=== PATIENT | male | born 1955 | race Caucasian/White ===

== ENCOUNTER → 2017-09-14 | Outpatient (CLI) | payer OTHER | LOC: RAD 07:55 | PROVIDERS: ATTEND Family Medicine | DX: M16.0 Bilateral primary osteoarthritis of hip (principal); R91.8 Other nonspecific abnormal finding of lung field; Q65.89 Other specified congenital deformities of hip; Z87.891 Personal history of nicotine dependence | CPT/HCPCS: 71046; 73523 ==

== ENCOUNTER → 2017-10-16 | Outpatient (CLI) | payer OTHER ==
[~2017-10-16] MED LIST: OMNIPAQUE 350 MG/ML, 75ML BOTTLE ONE
== END | disposition home or self-care (01) ==
LOC: CFH 12:42
PROVIDERS: ATTEND Family Medicine
DX: J43.2 Centrilobular emphysema (principal); D71 Functional disorders of polymorphonuclear neutrophils
CPT/HCPCS: 71260; Q9967

== ENCOUNTER → 2018-02-26 | Outpatient (CLI) | payer OTHER, MEDICARE | END | disposition home or self-care (01) | LOC: CARD 12:16 | PROVIDERS: ATTEND Internal Medicine Critical Care Medicine | DX: I35.0 Nonrheumatic aortic (valve) stenosis (principal); J96.11 Chronic respiratory failure with hypoxia; E78.5 Hyperlipidemia, unspecified | CPT/HCPCS: 36415; 82803; 93306 ==

== ENCOUNTER → 2018-06-18 | Outpatient (CLI) | payer OTHER, MEDICARE ==
[~2018-06-18] MED LIST changes: +OMNIPAQUE 350 MG/ML, 100ML BOTTLE ONE; -OMNIPAQUE 350 MG/ML, 75ML BOTTLE ONE
== END | disposition home or self-care (01) ==
LOC: CFH 09:09
PROVIDERS: ATTEND Internal Medicine Critical Care Medicine
DX: J44.9 Chronic obstructive pulmonary disease, unspecified (principal); J96.11 Chronic respiratory failure with hypoxia; J84.10 Pulmonary fibrosis, unspecified; J98.11 Atelectasis
CPT/HCPCS: 71275; Q9967

== ENCOUNTER → 2018-09-17 | Outpatient (CLI) | payer OTHER, MEDICARE ==
[~2018-09-17] MED LIST changes: -OMNIPAQUE 350 MG/ML, 100ML BOTTLE ONE; +REGADENOSON 0.4 MG/5 ML SYRINGE ONE
== END | disposition home or self-care (01) ==
LOC: CVU 06:47
PROVIDERS: ATTEND Internal Medicine Cardiovascular Disease
DX: I65.23 Occlusion and stenosis of bilateral carotid arteries (principal); I70.203 Unspecified atherosclerosis of native arteries of extremities, bilateral legs; I74.5 Embolism and thrombosis of iliac artery; I25.2 Old myocardial infarction; F17.210 Nicotine dependence, cigarettes, uncomplicated
CPT/HCPCS: 78452; 93017; 93880; 93922; 93925; 93978; A9502; J2785

== ENCOUNTER 2019-09-25 08:26 | Inpatient (IN) | payer OTHER, MEDICARE ==
[~2019-09-25] VITALS: Ht 188 cm; Wt 89.0 kg
[~2019-09-25 08:26] MED LIST changes: +ASPI-496 PO; +ASPI81TA45 PO; +ATOR40TA78 PO; +BUPR150T9 PO; +CLOP75TA PO; +HYDR-3241 PO; -REGADENOSON 0.4 MG/5 ML SYRINGE ONE; +[UNRECOGNIZED DRUG - REMARK]
--- NOTE | 2019-09-25 09:01 | NUR ---
RECEIVED REPORT FROM JOSETTE. PT UPRIGHT ON GURNEY AWAKE & COMFORTABLE AT REST, DANNIE RUSSELL AT BS, RESPONDS APPROP TO STAFF, COMFORT MEASURES PROVIDED, CALL LIGHT WITHIN REACH.
[2019-09-25 09:46] LABS: BASOPHILS # (AUTO) 0.05 x10^3/uL (0-0.1); BASOPHILS % (AUTO) 1 % (0-1); EOSINOPHILS # (AUTO) 0.08 x10^3/uL (0-0.4); EOSINOPHILS % (AUTO) 1 % (1-7); LYMPHOCYTES # (AUTO) 1.61 x10^3/uL (1-3.4); LYMPHOCYTES % (AUTO) 24 % (22-44); MD NO; MEAN CORPUSCULAR HEMOGLOBIN 31.7 pg (27.5-34.5); MEAN CORPUSCULAR HGB CONC 33.5 g/dL (33.2-36.2); MEAN CORPUSCULAR VOLUME 94.8 fL (81-97); MEAN PLATELET VOLUME 8.1 fL (7.4-10.4); MONOCYTES # (AUTO) 0.37 x10^3/uL (0.2-0.8); MONOCYTES % (AUTO) 6 % (2-9); NEUTROPHILS % (AUTO) 68 % (42-75); PLATELET COUNT 194 x10^3/uL (130-400); RED BLOOD COUNT 5.16 x10^6/uL (4.38-5.82); RED CELL DISTRIBUTION WIDTH 14.6 % (9.4-14.8)
[2019-09-25 09:55] LABS: INTERNATIONAL NORMALIZED RATIO 0.96 (0.93-1.1); PROTHROMBIN TIME 10.2 Seconds (9.6-11.5)
--- NOTE | 2019-09-25 09:59 | NUR ---
PT REMAINS UPRIGHT ON GURNEY AWAKE & COMFORTABLE AT REST, RESPONDS APPROP TO STAFF, COMFORT MEASURES PROVIDED, CALL LIGHT WITHIN REACH.
[2019-09-25 10:26] LABS: ANION GAP 5 mmol/L (5-15); CALCIUM 8.6 mg/dL (8.5-10.1); CHLORIDE 109 mmol/L (98-107)
[2019-09-25 10:27] LABS: ALANINE AMINOTRANSFERASE 23 U/L (12-78); ALBUMIN 3.8 g/dL (3.4-5.0)
[2019-09-25 10:32] LABS: ALKALINE PHOSPHATASE 87 U/L (45-117); BILIRUBIN,TOTAL 0.7 mg/dL (0.2-1.0); TOTAL PROTEIN 7.6 g/dL (6.4-8.2)
--- NOTE | 2019-09-25 11:03 | NUR ---
PT UPRIGHT ON GURNEY AWAKE & COMFORTABLE AT REST, AWAITING ARTERIAL US, RESPONDS APPROP TO STAFF, COMFORT MEASURES PROVIDED, CALL LIGHT WITHIN REACH.
--- NOTE | 2019-09-25 12:00 | NUR ---
PT REMAINS UPRIGHT ON RCALION WITH EYES CLOSED, RESPONDS APPROP TO STAFF, COMFORT MEASURES PROVIDED, CALL LIGHT WITHIN REACH, AWAITNG CALL BACK FROM DR GILES.
--- NOTE | 2019-09-25 12:13 | NUR ---
dr richmond spoke with dr andujar
[2019-09-25] MEDS ORDERED: HEPARIN 5,000 UNITS/ML, 1ML IV ONE ×2 (12:30→14:00)
[2019-09-25] MEDS ORDERED: HEPARIN 5,000 UNITS/ML, 1ML IV PRN ×2 (12:30→14:00)
[2019-09-25] MEDS ORDERED: HEPARIN 25,000 UNITS/250ML PMX 250 ML IV PRN ×2 (12:30→14:00)
--- NOTE | 2019-09-25 13:08 | NUR ---
PT UPRIGHT ON GURNEY AWAKE & COMFORTABLE, RESPONDS APPROP TO STAFF, NAD, NO NEEDS AT THIS TIME, CALL LIGHT WITHIN REACH.
[2019-09-25] MEDS ORDERED: HEPARIN 5,000 UNITS/ML, 1ML ONE (13:41)
[2019-09-25] MEDS ORDERED: HEPARIN 25,000 UNITS/250ML PMX 250 ML ONE (13:41)
[2019-09-25] MEDS ORDERED: hydrALAzine 20 MG/ML, 1ML IVPush PRN (14:00)
[2019-09-25] MEDS ORDERED: NICOTINE 21 MG/24 HR PATCH.TD24 TD SCH (14:00)
[2019-09-25] MEDS ORDERED: ONDANSETRON 2MG/ML, 2ML IVPush PRN (14:00)
--- NOTE | 2019-09-25 14:05 | NUR ---
PT REMAINS UPRIGHT ON GURNEY AWAKE & COMFORTABLE, HEPARIN GTT INITIATED, RESPONDS APPROP TO STAFF, NO NEEDS AT THIS TIME, CALL LIGHT WITHIN REACH.
[2019-09-25] MEDS ORDERED: LIDOCAINE 1%, 10ML ONE (15:07)
[2019-09-25] MEDS ORDERED: MIDAZOLAM 1 MG/ML, 5ML ONE (15:16)
[2019-09-25] MEDS ORDERED: NALOXONE 0.4 MG/ML, 1ML ONE (15:16)
[2019-09-25] MEDS ORDERED: FLUMAZENIL 0.1 MG/1 ML, 5ML ONE (15:17)
[2019-09-25] MEDS ORDERED: FENTANYL PF 100 MCG/2ML ONE (15:17)
[2019-09-25] MEDS ORDERED: NITROGLYCERIN 5 MG/ML, 10ML ONE (15:21)
[2019-09-25] MEDS ORDERED: PROTAMINE SULFATE 10 MG/ML, 25ML ONE (15:21)
[2019-09-25] MEDS ORDERED: ALTEPLASE 10 MG in SODIUM CHLORIDE 0.9% 90 ML IV SCH (15:30)
[2019-09-25] MEDS ORDERED: HEPARIN 1,000 UNITS/ML, 10ML ONE (15:52)
[2019-09-25] MEDS ORDERED: HEPARIN 25,000 UNITS/250ML PMX 250 ML IV SCH ×2 (16:30)
[2019-09-25] MEDS: NICOTINE 21 MG/24 HR PATCH.TD24 TD SCH (17:11)
[2019-09-25 18:11] LABS: BASOPHILS # (AUTO) 0.05 x10^3/uL (0-0.1); BASOPHILS % (AUTO) 1 % (0-1); EOSINOPHILS # (AUTO) 0.15 x10^3/uL (0-0.4); EOSINOPHILS % (AUTO) 2 % (1-7); LYMPHOCYTES # (AUTO) 1.86 x10^3/uL (1-3.4); LYMPHOCYTES % (AUTO) 28 % (22-44); MD NO; MEAN CORPUSCULAR HEMOGLOBIN 31.8 pg (27.5-34.5); MEAN CORPUSCULAR HGB CONC 33.7 g/dL (33.2-36.2); MEAN CORPUSCULAR VOLUME 94.4 fL (81-97); MEAN PLATELET VOLUME 8.4 fL (7.4-10.4); MONOCYTES # (AUTO) 0.41 x10^3/uL (0.2-0.8); MONOCYTES % (AUTO) 6 % (2-9); NEUTROPHILS # (AUTO) 4.18 x10^3/uL (1.8-6.8); NEUTROPHILS % (AUTO) 63 % (42-75); PLATELET COUNT 186 x10^3/uL (130-400); RED BLOOD COUNT 5.13 x10^6/uL (4.38-5.82); RED CELL DISTRIBUTION WIDTH 14.1 % (9.4-14.8)
[2019-09-25 18:19] LABS: ANION GAP 8 mmol/L (5-15); CALCIUM 8.6 mg/dL (8.5-10.1); CHLORIDE 109 mmol/L (98-107); CREATININE 0.92 mg/dL (0.7-1.3)
[2019-09-25 18:26] LABS: INTERNATIONAL NORMALIZED RATIO 1.02 (0.93-1.1); PROTHROMBIN TIME 10.8 Seconds (9.6-11.5)
[2019-09-25] MEDS: SODIUM CHLORIDE 0.9% 1,000 ML IV SCH (19:36)
[2019-09-25 19:45] VITALS: BP 146/77
[2019-09-25 20:00] VITALS: BP 130/86
[2019-09-25] MEDS: ATORVASTATIN 40 MG TABLET PO SCH (21:18)
[2019-09-25] MEDS ORDERED: ACETAMINOPHEN 325 MG TABLET PO PRN (21:30)
[2019-09-25] MEDS ORDERED: ACETAMINOPHEN 325 MG TABLET ONE (21:31)
[2019-09-26] MEDS: morphine SULFATE 10 MG/ML, 1ML IVPush PRN ×4 (00:16→23:12)
[2019-09-26 00:32] LABS: BASOPHILS # (AUTO) 0.04 x10^3/uL (0-0.1); BASOPHILS % (AUTO) 1 % (0-1); EOSINOPHILS # (AUTO) 0.23 x10^3/uL (0-0.4); EOSINOPHILS % (AUTO) 3 % (1-7); LYMPHOCYTES # (AUTO) 1.88 x10^3/uL (1-3.4); LYMPHOCYTES % (AUTO) 24 % (22-44); MD NO; MEAN CORPUSCULAR HGB CONC 33.8 g/dL (33.2-36.2); MEAN CORPUSCULAR VOLUME 94.7 fL (81-97); MEAN PLATELET VOLUME 8.4 fL (7.4-10.4); MONOCYTES # (AUTO) 0.55 x10^3/uL (0.2-0.8); MONOCYTES % (AUTO) 7 % (2-9); NEUTROPHILS # (AUTO) 5.01 x10^3/uL (1.8-6.8); NEUTROPHILS % (AUTO) 65 % (42-75); PLATELET COUNT 174 x10^3/uL (130-400); RED BLOOD COUNT 4.81 x10^6/uL (4.38-5.82); RED CELL DISTRIBUTION WIDTH 14.2 % (9.4-14.8)
[2019-09-26 00:38] LABS: ANION GAP 6 mmol/L (5-15); CALCIUM 8.2 mg/dL (8.5-10.1); CHLORIDE 110 mmol/L (98-107); CREATININE 0.96 mg/dL (0.7-1.3)
[2019-09-26 00:48] LABS: INTERNATIONAL NORMALIZED RATIO 0.97 (0.93-1.1); PROTHROMBIN TIME 10.3 Seconds (9.6-11.5)
[2019-09-26] MEDS ORDERED: ALTEPLASE 10 MG in SODIUM CHLORIDE 0.9% 90 ML IV SCH ×4 (00:56→01:30)
[2019-09-26] MEDS: SODIUM CHLORIDE 0.9% 1,000 ML IV SCH ×3 (03:19→19:51)
[2019-09-26 04:00] VITALS: BP 129/68
[2019-09-26 07:03] LABS: BASOPHILS # (AUTO) 0.04 x10^3/uL (0-0.1); BASOPHILS % (AUTO) 1 % (0-1); EOSINOPHILS # (AUTO) 0.16 x10^3/uL (0-0.4); EOSINOPHILS % (AUTO) 3 % (1-7); LYMPHOCYTES # (AUTO) 1.42 x10^3/uL (1-3.4); LYMPHOCYTES % (AUTO) 23 % (22-44); MD NO; MEAN CORPUSCULAR HEMOGLOBIN 32.2 pg (27.5-34.5); MEAN CORPUSCULAR HGB CONC 33.8 g/dL (33.2-36.2); MEAN CORPUSCULAR VOLUME 95.4 fL (81-97); MEAN PLATELET VOLUME 7.9 fL (7.4-10.4); MONOCYTES # (AUTO) 0.41 x10^3/uL (0.2-0.8); MONOCYTES % (AUTO) 7 % (2-9); NEUTROPHILS % (AUTO) 68 % (42-75); PLATELET COUNT 162 x10^3/uL (130-400); RED BLOOD COUNT 4.88 x10^6/uL (4.38-5.82); RED CELL DISTRIBUTION WIDTH 14.3 % (9.4-14.8)
[2019-09-26 07:13] LABS: ALANINE AMINOTRANSFERASE 19 U/L (12-78); ALBUMIN 3.3 g/dL (3.4-5.0); ANION GAP 4 mmol/L (5-15); CALCIUM 8.2 mg/dL (8.5-10.1); CHLORIDE 111 mmol/L (98-107)
[2019-09-26 07:15] LABS: ALKALINE PHOSPHATASE 77 U/L (45-117); BILIRUBIN,TOTAL 0.6 mg/dL (0.2-1.0); TOTAL PROTEIN 6.7 g/dL (6.4-8.2)
[2019-09-26 07:54] LABS: INTERNATIONAL NORMALIZED RATIO 1.01 (0.93-1.1); PROTHROMBIN TIME 10.7 Seconds (9.6-11.5)
[2019-09-26] MEDS: ASPIRIN 81 MG TABLET EC PO SCH (10:31)
[2019-09-26 12:15] LABS: BASOPHILS # (AUTO) 0.03 x10^3/uL (0-0.1); BASOPHILS % (AUTO) 1 % (0-1); EOSINOPHILS # (AUTO) 0.14 x10^3/uL (0-0.4); EOSINOPHILS % (AUTO) 3 % (1-7); LYMPHOCYTES # (AUTO) 1.52 x10^3/uL (1-3.4); LYMPHOCYTES % (AUTO) 28 % (22-44); MD NO; MEAN CORPUSCULAR HGB CONC 33.6 g/dL (33.2-36.2); MEAN CORPUSCULAR VOLUME 95.3 fL (81-97); MEAN PLATELET VOLUME 7.6 fL (7.4-10.4); MONOCYTES # (AUTO) 0.38 x10^3/uL (0.2-0.8); MONOCYTES % (AUTO) 7 % (2-9); NEUTROPHILS # (AUTO) 3.37 x10^3/uL (1.8-6.8); NEUTROPHILS % (AUTO) 62 % (42-75); PLATELET COUNT 163 x10^3/uL (130-400); RED BLOOD COUNT 4.85 x10^6/uL (4.38-5.82)
[2019-09-26 12:27] LABS: ANION GAP 7 mmol/L (5-15); CALCIUM 8.3 mg/dL (8.5-10.1); CHLORIDE 109 mmol/L (98-107)
[2019-09-26 12:28] LABS: CREATININE 0.98 mg/dL (0.7-1.3)
[2019-09-26] MEDS ORDERED: PROTAMINE SULFATE 10 MG/ML, 25ML ONE (12:31)
[2019-09-26] MEDS ORDERED: MIDAZOLAM 1 MG/ML, 5ML ONE ×2 (12:31→13:05)
[2019-09-26] MEDS ORDERED: NITROGLYCERIN 5 MG/ML, 10ML ONE (12:31)
[2019-09-26] MEDS ORDERED: FLUMAZENIL 0.1 MG/1 ML, 5ML ONE (12:31)
[2019-09-26] MEDS ORDERED: NALOXONE 1 MG/ML, 2ML ONE (12:31)
[2019-09-26] MEDS ORDERED: FENTANYL PF 100 MCG/2ML ONE ×2 (12:31→13:05)
[2019-09-26] MEDS ORDERED: HEPARIN 1,000 UNITS/ML, 10ML ONE (12:32)
[2019-09-26 13:24] LABS: INTERNATIONAL NORMALIZED RATIO 1.01 (0.93-1.1); PROTHROMBIN TIME 10.7 Seconds (9.6-11.5)
[2019-09-26] MEDS ORDERED: HEPARIN 25,000 UNITS/250ML PMX 250 ML IV SCH (15:00)
[2019-09-26] MEDS: ALTEPLASE 10 MG in SODIUM CHLORIDE 0.9% 90 ML IV SCH ×2 (15:49→23:01)
[2019-09-26] MEDS: NICOTINE 21 MG/24 HR PATCH.TD24 TD SCH ×2 (17:11→19:38)
[2019-09-26 18:13] LABS: BASOPHILS # (AUTO) 0.04 x10^3/uL (0-0.1); BASOPHILS % (AUTO) 1 % (0-1); EOSINOPHILS # (AUTO) 0.15 x10^3/uL (0-0.4); EOSINOPHILS % (AUTO) 2 % (1-7); LYMPHOCYTES # (AUTO) 1.63 x10^3/uL (1-3.4); LYMPHOCYTES % (AUTO) 25 % (22-44); MD NO; MEAN CORPUSCULAR HEMOGLOBIN 31.7 pg (27.5-34.5); MEAN CORPUSCULAR HGB CONC 33.6 g/dL (33.2-36.2); MEAN CORPUSCULAR VOLUME 94.5 fL (81-97); MEAN PLATELET VOLUME 7.9 fL (7.4-10.4); MONOCYTES # (AUTO) 0.39 x10^3/uL (0.2-0.8); MONOCYTES % (AUTO) 6 % (2-9); NEUTROPHILS # (AUTO) 4.28 x10^3/uL (1.8-6.8); NEUTROPHILS % (AUTO) 66 % (42-75); PLATELET COUNT 166 x10^3/uL (130-400); RED BLOOD COUNT 4.88 x10^6/uL (4.38-5.82); RED CELL DISTRIBUTION WIDTH 13.9 % (9.4-14.8)
[2019-09-26 18:22] LABS: ANION GAP 5 mmol/L (5-15); CALCIUM 8.2 mg/dL (8.5-10.1); CHLORIDE 109 mmol/L (98-107); CREATININE 0.97 mg/dL (0.7-1.3)
[2019-09-26 18:37] LABS: INTERNATIONAL NORMALIZED RATIO 1.01 (0.93-1.1); PROTHROMBIN TIME 10.7 Seconds (9.6-11.5)
[2019-09-26] MEDS: ATORVASTATIN 40 MG TABLET PO SCH (19:38)
[2019-09-27 00:13] LABS: BASOPHILS # (AUTO) 0.08 x10^3/uL (0-0.1); BASOPHILS % (AUTO) 1 % (0-1); EOSINOPHILS # (AUTO) 0.18 x10^3/uL (0-0.4); EOSINOPHILS % (AUTO) 2 % (1-7); LYMPHOCYTES # (AUTO) 1.86 x10^3/uL (1-3.4); LYMPHOCYTES % (AUTO) 26 % (22-44); MD NO; MEAN CORPUSCULAR HEMOGLOBIN 31.6 pg (27.5-34.5); MEAN CORPUSCULAR HGB CONC 33.7 g/dL (33.2-36.2); MEAN CORPUSCULAR VOLUME 93.7 fL (81-97); MONOCYTES # (AUTO) 0.54 x10^3/uL (0.2-0.8); MONOCYTES % (AUTO) 8 % (2-9); NEUTROPHILS # (AUTO) 4.57 x10^3/uL (1.8-6.8); NEUTROPHILS % (AUTO) 63 % (42-75); PLATELET COUNT 168 x10^3/uL (130-400); RED BLOOD COUNT 4.76 x10^6/uL (4.38-5.82); RED CELL DISTRIBUTION WIDTH 14.3 % (9.4-14.8)
[2019-09-27 00:22] LABS: INTERNATIONAL NORMALIZED RATIO 1.01 (0.93-1.1); PROTHROMBIN TIME 10.7 Seconds (9.6-11.5)
[2019-09-27 00:24] LABS: ANION GAP 5 mmol/L (5-15); CHLORIDE 111 mmol/L (98-107); CREATININE 1.08 mg/dL (0.7-1.3)
[2019-09-27 05:19] VITALS: BP 120/70
[2019-09-27] MEDS: ASPIRIN 81 MG TABLET EC PO SCH (05:32)
[2019-09-27] MEDS: SODIUM CHLORIDE 0.9% 1,000 ML IV SCH ×2 (05:32→12:00)
[2019-09-27 06:33] LABS: BASOPHILS # (AUTO) 0.06 x10^3/uL (0-0.1); BASOPHILS % (AUTO) 1 % (0-1); EOSINOPHILS # (AUTO) 0.15 x10^3/uL (0-0.4); EOSINOPHILS % (AUTO) 2 % (1-7); LYMPHOCYTES # (AUTO) 1.45 x10^3/uL (1-3.4); LYMPHOCYTES % (AUTO) 22 % (22-44); MD NO; MEAN CORPUSCULAR HEMOGLOBIN 31.7 pg (27.5-34.5); MEAN CORPUSCULAR HGB CONC 33.6 g/dL (33.2-36.2); MEAN CORPUSCULAR VOLUME 94.3 fL (81-97); MEAN PLATELET VOLUME 7.7 fL (7.4-10.4); MONOCYTES # (AUTO) 0.41 x10^3/uL (0.2-0.8); MONOCYTES % (AUTO) 6 % (2-9); NEUTROPHILS # (AUTO) 4.67 x10^3/uL (1.8-6.8); NEUTROPHILS % (AUTO) 69 % (42-75); PLATELET COUNT 151 x10^3/uL (130-400); RED BLOOD COUNT 4.78 x10^6/uL (4.38-5.82); RED CELL DISTRIBUTION WIDTH 13.9 % (9.4-14.8)
[2019-09-27 06:42] LABS: INTERNATIONAL NORMALIZED RATIO 0.97 (0.93-1.1); PROTHROMBIN TIME 10.3 Seconds (9.6-11.5)
[2019-09-27 06:45] LABS: ANION GAP 5 mmol/L (5-15); CALCIUM 8.2 mg/dL (8.5-10.1); CHLORIDE 109 mmol/L (98-107); CREATININE 0.99 mg/dL (0.7-1.3)
[2019-09-27] MEDS: ALTEPLASE 10 MG in SODIUM CHLORIDE 0.9% 90 ML IV SCH (06:58)
[2019-09-27] MEDS ORDERED: FENTANYL PF 100 MCG/2ML ONE (07:39)
[2019-09-27] MEDS ORDERED: FLUMAZENIL 0.1 MG/1 ML, 5ML ONE (07:39)
[2019-09-27] MEDS ORDERED: MIDAZOLAM 1 MG/ML, 5ML ONE ×2 (07:39)
[2019-09-27] MEDS ORDERED: NALOXONE 1 MG/ML, 2ML ONE (07:40)
[2019-09-27] MEDS ORDERED: HEPARIN 1,000 UNITS/ML, 10ML ONE (07:40)
[2019-09-27] MEDS ORDERED: PROTAMINE SULFATE 10 MG/ML, 25ML ONE (07:40)
[2019-09-27] MEDS ORDERED: LIDOCAINE 1%, 10ML ONE (07:43)
[2019-09-27] MEDS ORDERED: hydrALAzine 20 MG/ML, 1ML ONE (09:19)
[2019-09-27] MEDS ORDERED: HEPARIN 5,000 UNITS/ML, 1ML IV ONE (12:00)
[2019-09-27] MEDS ORDERED: HEPARIN 5,000 UNITS/ML, 1ML IV PRN (12:00)
[2019-09-27 12:12] LABS: BASOPHILS # (AUTO) 0.05 x10^3/uL (0-0.1); BASOPHILS % (AUTO) 1 % (0-1); EOSINOPHILS # (AUTO) 0.12 x10^3/uL (0-0.4); EOSINOPHILS % (AUTO) 2 % (1-7); LYMPHOCYTES # (AUTO) 1.67 x10^3/uL (1-3.4); LYMPHOCYTES % (AUTO) 23 % (22-44); MD NO; MEAN CORPUSCULAR HEMOGLOBIN 32.2 pg (27.5-34.5); MEAN CORPUSCULAR HGB CONC 34.2 g/dL (33.2-36.2); MEAN CORPUSCULAR VOLUME 94.1 fL (81-97); MEAN PLATELET VOLUME 8.1 fL (7.4-10.4); MONOCYTES # (AUTO) 0.57 x10^3/uL (0.2-0.8); MONOCYTES % (AUTO) 8 % (2-9); NEUTROPHILS # (AUTO) 4.94 x10^3/uL (1.8-6.8); NEUTROPHILS % (AUTO) 67 % (42-75); PLATELET COUNT 158 x10^3/uL (130-400); RED BLOOD COUNT 4.65 x10^6/uL (4.38-5.82)
[2019-09-27] MEDS: HEPARIN 25,000 UNITS/250ML PMX 250 ML IV PRN ×2 (13:47→23:08)
[2019-09-27] MEDS ORDERED: SIMETHICONE 80 MG CHEW TAB PO PRN (15:00)
[2019-09-27] MEDS ORDERED: PANTOPRAZOLE 40 MG IV IVPush SCH (17:00)
[2019-09-27] MEDS ORDERED: GOLYTELY 4,000ML ORAL.SOL PO ONE (17:00)
[2019-09-27] MEDS ORDERED: PANTOPRAZOLE 40 MG IV ONE (17:08)
[2019-09-27] MEDS: ATORVASTATIN 40 MG TABLET PO SCH (21:09)
[2019-09-28] MEDS: SODIUM CHLORIDE 0.9% 1,000 ML IV SCH
[2019-09-28 04:35] VITALS: BP 114/70
[2019-09-28] MEDS: ASPIRIN 81 MG TABLET EC PO SCH (06:45)
[2019-09-28] MEDS ORDERED: HALOPERIDOL 5 MG/ML IV PRN (09:30)
[2019-09-28] MEDS ORDERED: FENTANYL PF 100 MCG/2ML IV PRN (09:30)
[2019-09-28] MEDS ORDERED: MEPERIDINE/PF 25MG/ML,1ML IVPush PRN (09:30)
[2019-09-28] MEDS ORDERED: ALBUTEROL SULFATE 2.5 MG/3 ML NPPB PRN (09:30)
[2019-09-28] MEDS ORDERED: HYDROmorphone 2 MG/ML, 1ML IVPush PRN (09:30)
[2019-09-28] MEDS ORDERED: OXYcodone 5 MG/5 ML ORAL.SOL UDC PO PRN (09:30)
[2019-09-28] MEDS ORDERED: SODIUM CHLORIDE 0.9%, 500ML IVBOLUS ONE (11:00)
[2019-09-28] MEDS ORDERED: SODIUM CHLORIDE 0.9% 1,000ML IVBOLUS ONE (14:00)
[2019-09-28] MEDS: NICOTINE 21 MG/24 HR PATCH.TD24 TD SCH (17:11)
[2019-09-28 17:51] VITALS: BP 115/67
[2019-09-28] MEDS: RIVAROXABAN 15 MG TABLET PO SCH (18:07)
[2019-09-28 20:00] VITALS: BP 103/61
[2019-09-28] MEDS: ATORVASTATIN 40 MG TABLET PO SCH (20:56)
[2019-09-28] MEDS: FAMOTIDINE 20 MG TABLET PO SCH (20:56)
[2019-09-29] MEDS: ASPIRIN 81 MG TABLET EC PO SCH (06:12)
[2019-09-29 08:02] VITALS: BP 142/86
[2019-09-29] MEDS: FAMOTIDINE 20 MG TABLET PO SCH (09:30)
[2019-09-29] MEDS: RIVAROXABAN 15 MG TABLET PO SCH (09:30)
[2019-09-29] MEDS ORDERED: RIVA20TA PO (09:45)
[2019-09-29] MEDS ORDERED: RIVA15TA PO (09:45)
[2019-09-29] MEDS ORDERED: PANT40TA3 PO (09:45)
[2019-09-29] MEDS ORDERED: ASPI81TA45 PO (09:49)
== END 2019-09-29 11:13 | disposition home or self-care (01) | DRG 272 ==
LOC: ED 12:22 → EDIP 12:23 → SUATTDRO 13:02 → ED 14:10 → CCU 17:06 → ICU 09-26 07:28 → 4EST 09-28 17:19 → DCLOUNGE 09-29 10:58
PROVIDERS: ADMIT Internal Medicine; ATTEND Internal Medicine
PROC: B41G1ZZ Fluoroscopy of Left Lower Extremity Arteries using Low Osmolar Contrast (ICD-10-PCS; 2019-09-25)
PROC: B41F1ZZ Fluoroscopy of Right Lower Extremity Arteries using Low Osmolar Contrast (ICD-10-PCS; 2019-09-25)
PROC: 04HL33Z Insertion of Infusion Device into Left Femoral Artery, Percutaneous Approach (ICD-10-PCS; 2019-09-25)
PROC: 04HK33Z Insertion of Infusion Device into Right Femoral Artery, Percutaneous Approach (ICD-10-PCS; 2019-09-25)
PROC: B41D1ZZ Fluoroscopy of Aorta and Bilateral Lower Extremity Arteries using Low Osmolar Contrast (ICD-10-PCS; 2019-09-26)
PROC: 04PYX3Z Removal of Infusion Device from Lower Artery, External Approach (ICD-10-PCS; 2019-09-26)
PROC: 04HL33Z Insertion of Infusion Device into Left Femoral Artery, Percutaneous Approach (ICD-10-PCS; 2019-09-26)
PROC: 3E05317 Introduction of Other Thrombolytic into Peripheral Artery, Percutaneous Approach (ICD-10-PCS; 2019-09-26)
PROC: B41D1ZZ Fluoroscopy of Aorta and Bilateral Lower Extremity Arteries using Low Osmolar Contrast (ICD-10-PCS; 2019-09-26)
PROC: 04CK3ZZ Extirpation of Matter from Right Femoral Artery, Percutaneous Approach (ICD-10-PCS; principal; 2019-09-27)
PROC: 04CL3ZZ Extirpation of Matter from Left Femoral Artery, Percutaneous Approach (ICD-10-PCS; 2019-09-27)
PROC: 047W3ZZ Dilation of Left Foot Artery, Percutaneous Approach (ICD-10-PCS; 2019-09-27)
PROC: 047L3ZZ Dilation of Left Femoral Artery, Percutaneous Approach (ICD-10-PCS; 2019-09-27)
PROC: 047Q3ZZ Dilation of Left Anterior Tibial Artery, Percutaneous Approach (ICD-10-PCS; 2019-09-27)
PROC: 0DBK8ZZ Excision of Ascending Colon, Via Natural or Artificial Opening Endoscopic (ICD-10-PCS; 2019-09-28)
PROC: 0DB68ZX Excision of Stomach, Via Natural or Artificial Opening Endoscopic, Diagnostic (ICD-10-PCS; 2019-09-28)
DX: I74.3 Embolism and thrombosis of arteries of the lower extremities (principal); E78.5 Hyperlipidemia, unspecified; F10.20 Alcohol dependence, uncomplicated; F17.210 Nicotine dependence, cigarettes, uncomplicated; I73.9 Peripheral vascular disease, unspecified; I99.8 Other disorder of circulatory system; J44.9 Chronic obstructive pulmonary disease, unspecified; K21.0 Gastro-esophageal reflux disease with esophagitis; K57.30 Diverticulosis of large intestine without perforation or abscess without bleeding; K63.5 Polyp of colon; K64.8 Other hemorrhoids; Z51.5 Encounter for palliative care; Z79.01 Long term (current) use of anticoagulants; Z88.0 Allergy status to penicillin
CPT/HCPCS: 36415; 37211; 37213; 37214; 96365; 96366; 96375; 99285; J3490; 75710; 80048; 80053; 83735; 84100; 85014; 85018; 85025; 85384; 85520; 85610; 85730; 87081; 88305; 88342; 93005; 93922; 93926; 99156; 99157; C1725; G0378; J1644; J2250; J2405; J2720; J2997; J3010; C1751; C1757; C1769; C1894; C9113; J0360; J2270; J2310; J7030; J7040